=== PATIENT | female | born 1995 | race Asian ===

== ENCOUNTER 2018-05-12 09:37 | Day surgery (SDC) | payer OTHER ==
[~2018-05-12 09:37] MED LIST: Buffered Lidocaine 1% SYRIN* 1 ML/SYRINGE INTRADERM ONE; Dexamethasone IV* 4 MG/ML 1 ML (4 MG) IV SLOW PU ONE; DiMENhydriNATE IV* 50 MG/ML VIAL IV PUSH PRN; Famotidine IV* 10 MG/ML 2 ML (20 mg) IV ONE; HYDROcodone/ACETAMIN 5-325 MG* 1 TAB PO PRN; Ibuprofen TAB* 600 MG PO PRN; Ketorolac INJ* 30 MG/ML 1 ML VIAL IV PRN; Lactated Ringers 1000 ML Bag* 1,000 ML IV SCH; Naloxone* 0.4 MG/ML 1 ML VIAL IV PRN; fentaNYL* 50 MCG/ML 2 ML VIAL (100 MCG VIAL) IV PRN; oxyCODONE/Acetamin 5/325 MG* TAB PO PRN
[2018-05-12] MEDS ORDERED: Dexamethasone IV* 4 MG/ML 1 ML (4 MG) ONE (10:04)
[2018-05-12] MEDS ORDERED: Famotidine IV* 10 MG/ML 2 ML (20 mg) ONE (10:05)
[2018-05-12] MEDS ORDERED: fentaNYL* 50 MCG/ML 2 ML VIAL (100 MCG VIAL) ONE (10:17)
[2018-05-12] MEDS ORDERED: Midazolam* 1 MG/ML 2 ML VIAL (2 MG) ONE (10:17)
[2018-05-12] MEDS ORDERED: Lidocaine 2% PF * 5 ML VIAL ONE (10:17)
[2018-05-12] MEDS ORDERED: Propofol* 10 MG/ML 20 ML BTL ONE (10:17)
[2018-05-12] MEDS ORDERED: Lidocaine 2% EPI 1:200000 MPF*10-20 ML VIAL ONE (11:37)
[2018-05-12] MEDS ORDERED: Ondansetron INJ* 2 MG/ML VIAL ONE (11:52)
--- NOTE | 2018-05-12 13:29 | OP ---
OPERATIVE REPORT: DATE OF OPERATION: 05/12/18 DATE OF : [birth year] SURGEON: Ascencion Naidu MD PRE-OP DIAGNOSIS: Right preauricular recurring infected cyst. POST-OP DIAGNOSIS: Right preauricular recurring infected cyst. OPERATIVE PROCEDURE: Excision of right preauricular cyst. BRIEF HISTORY: This 22-year-old with a recurring preauricular cyst with some tenderness and inflamma tion repetitively, elected for surgical management. DESCRIPTION OF PROCEDURE: The patient was taken to the operating room, general anesthetic with LMA. A curvilinear incision made just anterior to tragus. Skin flap was elevated. Cyst mass was identif ied and elevated off of the parotid fascia. Cauterization of any small bleeding was carried out. Th e wound was then closed in single layer. Small amount of glue was applied. The patient was awakened and sent to recovery room in stable condition. Instrument and sponge count correct. Blood loss min imal. [id number]/[facility] #: [id number]
[2018-05-12 13:48] VITALS: BP 108/74
== END 2018-05-12 13:51 | disposition home or self-care (01) ==
LOC: OR 09:37
PROVIDERS: ATTEND Otolaryngology
DX: Q18.1 Preauricular sinus and cyst (principal)
CPT/HCPCS: 81025; 88304; J1100; J2250; J2405; J2704; J3010